=== PATIENT | female | born 1965 | race Hispanic/Latino ===

== ENCOUNTER → 2023-12-02 | Emergency (ER) | payer BC ==
[~2023-12-02] VITALS: Ht 144.8 cm; Wt 82.1 kg
[2023-12-02 00:47] VITALS: BP 166/83; PULSE 100; RESP 20
== END ==
LOC: EDH 00:45
DX: R10.9 Unspecified abdominal pain (principal); R11.2 Nausea with vomiting, unspecified; R19.7 Diarrhea, unspecified; Z53.21 Procedure and treatment not carried out due to patient leaving prior to being seen by health care provider